=== PATIENT | female | born 1980 | race Caucasian/White ===

== ENCOUNTER → 2017-06-28 | Outpatient (CLI) | payer BC ==
[~2017-06-28] MED LIST: BCP TD; BENADRYL50 MG PO; PRENATAL1 TA1 PO
== END ==
LOC: MC.RAD 11:31
DX: N63.20 Unspecified lump in the left breast, unspecified quadrant (principal); R92.1 Mammographic calcification found on diagnostic imaging of breast; Z98.82 Breast implant status

== ENCOUNTER → 2019-11-28 | Outpatient (CLI) | payer BC | LOC: COL.RAD 08:09 | DX: K29.00 Acute gastritis without bleeding (principal); K76.89 Other specified diseases of liver ==

== ENCOUNTER → 2020-12-23 | Outpatient (REF) ==
[2020-12-23 21:08] LABS: ALBUMIN 4.1 gm/dL (3.5-5.0); BILIRUBIN,TOTAL 0.3 mg/dL (0.0-1.0); CALCIUM 9.1 mg/dL (8.4-10.2); CREATININE, serum 0.75 (0.52-1.25); TOTAL PROTEIN 7.1 gm/dL (6.4-8.2)
== END ==
LOC: ZLAB.WCH 20:40
PROVIDERS: Nurse Practitioner Primary Care
DX: Z01.89 Encounter for other specified special examinations (principal)